=== PATIENT | female | born 2005 | race Caucasian/White ===

== ENCOUNTER 2025-03-14 11:16 | Emergency (ER) | payer BC ==
[~2025-03-14] VITALS: Ht 175.3 cm; Wt 99.0 kg
[2025-03-14] MEDS ORDERED: LORazepam 2 MG/ML VIAL IV ONE (11:30)
[2025-03-14] MEDS ORDERED: SODIUM CHLORIDE 0.9% 500 ML IV PRN (11:30)
[2025-03-14] MEDS ORDERED: levETIRAcetam 500 MG/5 ML VIAL IV ONE (11:30)
[2025-03-14 11:40] LABS: BASOPHILS 0.1 % (0-2); EOSINOPHILS 0.1 % (0-6); HEMATOCRIT 39.3 % (35.0-50.0); HEMOGLOBIN 13.2 g/dL (12.0-18.0); LYMPHOCYTES 10.8 % (24-44); MCHC 33.5 g/dl (30-36); MCV 77.6 fl (81-99); MONOCYTES 6.8 % (0-12); NEUTROPHILS 82.2 % (39-80); PLATELET COUNT 178 K/uL (140-440); RBC 5.07 M/ul (4.3-5.7); RDW 16.6 (10.5-15.0)
[2025-03-14 11:58] LABS: ALBUMIN 4.5 g/dL (3.4-5.0); ALBUMIN/GLOBULIN RATIO 1.36 (1.1-2.4); BILIRUBIN, TOTAL 0.7 mg/dL (0.2-1.0); BUN/CREATININE RATIO 8.13 (6.0-28.6); CALCIUM 9.1 mg/dL (8.5-10.1); CREATININE, SERUM 0.86 mg/dL (0.55-1.02); MAGNESIUM 1.5 mg/dL (1.8-2.4); PROTEIN, TOTAL 7.8 g/dL (6.4-8.2)
[2025-03-14] MEDS ORDERED: POTASSIUM CHLORIDE 20 MEQ/15 ML CUP PO ONE (12:45)
[2025-03-14] MEDS ORDERED: MAGNESIUM SULFATE 2 GM/50 ML BAG IV ONE (12:45)
[2025-03-14] MEDS ORDERED: ondansetron HCL 4 MG/2 ML VIAL IV ONE (13:45)
[2025-03-14] MEDS ORDERED: KEPPRA500 MG PO (14:05)
[2025-03-14 14:34] VITALS: BP 141/100
== END 2025-03-14 14:34 | disposition home or self-care (01) ==
LOC: ED 11:16
PROVIDERS: Family Medicine
DX: R56.9 Unspecified convulsions (principal)
CPT/HCPCS: 36415; 80053; 80307; 83735; 84703; 85025; 96365; 96375; 99284-25; A9270; J1953; J2060; J2405; J3475; J7040